=== PATIENT | female | born 1975 | race Caucasian/White ===

== ENCOUNTER 2024-06-11 04:20 | Emergency (ER) | payer BC ==
[~2024-06-11] VITALS: Ht 167.6 cm; Wt 60.5 kg
[2024-06-11] MEDS ORDERED: ALBUTEROL/IPRATROPIUM 3 ML NEB ONE (04:35)
[2024-06-11] MEDS ORDERED: PROCHLORPERAZINE EDISYLATE 10 MG/2 ML VIAL IV ONE (04:45)
[2024-06-11] MEDS ORDERED: LACTATED RINGER'S 1,000 ML IV ONE (04:45)
[2024-06-11] MEDS ORDERED: diphenhydrAMINE HCL 50 MG/ML VIAL IV ONE (04:45)
[2024-06-11] MEDS ORDERED: ALBUTEROL/IPRATROPIUM 3 ML NEB INH ONE (04:45)
[2024-06-11] MEDS ORDERED: KETOROLAC TROMETHAMINE 30 MG/ML VIAL IV ONE (04:45)
[2024-06-11 04:50] LABS: MCV 96.6 fl (81-99)
[2024-06-11 04:52] LABS: BASOPHILS 0.4 % (0-2); HEMATOCRIT 39.4 % (35.0-50.0); HEMOGLOBIN 13.4 g/dL (12.0-18.0); LYMPHOCYTES 24.7 % (24-44); MCHC 34.1 g/dl (30-36); MONOCYTES 8.5 % (0-12); NEUTROPHILS 66.4 % (39-80); PLATELET COUNT 152 K/uL (140-440); RBC 4.07 M/ul (4.3-5.7); RDW 12.7 (10.5-15.0)
[2024-06-11 05:03] LABS: ALBUMIN 3.5 g/dL (3.4-5.0); ALBUMIN/GLOBULIN RATIO 0.9 (1.1-2.4); ANION GAP 15.5 (7-21); BILIRUBIN, TOTAL 0.4 ng/dL (0.2-1.0); BUN/CREATININE RATIO 8.1 (6.0-28.6); CALCIUM 8.4 mg/dL (8.5-10.1); CREATININE, SERUM 1.11 mg/dL (0.55-1.02); POTASSIUM 3.5 mmol/L (3.5-5.1); PROTEIN, TOTAL 7.4 g/dL (6.4-8.2)
[2024-06-11 05:17] LABS: INFLUENZA B NAA NEGATIVE (NEGATIVE); RESPIRATORY SYNCYTIAL VIR NAA NEGATIVE (NEGATIVE)
[2024-06-11] MEDS ORDERED: HYDROmorphone HCL 1 MG/ML SYR IV ONE (05:45)
[2024-06-11 06:26] LABS: BILIRUBIN, URINE NEGATIVE (negative); BLOOD/HGB, URINE SMALL (Negative); KETONE, URINE >=80 (Negative); LEUK ESTERASE, URINE NEGATIVE (negative); NITRITE, URINE NEGATIVE (negative)
[2024-06-11 06:36] LABS: BACTERIA, URINE 1+ /hpf (negative); CASTS, URINE NONE SEEN \\lpf; COLLECTION TYPE, URINE CLEAN CATCH; CRYSTALS, URINE NONE SEEN (0-1+); EPITHELIAL CELLS, URINE SQUAMOUS 1+ /lpf (0-1+); REFLEX CULTURE, URINE No (No)
[2024-06-11] MEDS ORDERED: INHALER, ASSIST DEVICES 1 EACH SPACER MISC ONE (06:45)
[2024-06-11] MEDS ORDERED: HYDROCODONE BIT/ACETAMINOPHEN 5/325 MG 1 TAB HOME.PACK PO ONE (06:45)
[2024-06-11] MEDS ORDERED: ALBUTEROL SULFATE 8 GM HOME.PACK INH ONE (06:45)
[2024-06-11 07:21] VITALS: BP 92/67
[2024-06-12] MEDS ORDERED: ONDANSETRON ODT8 MG PO (18:50)
[2024-06-12] MEDS ORDERED: HYDROCODON-ACE1 EAC1 PO (18:50)
[2024-06-12] MEDS ORDERED: FLONASE ALLERG9.9 ML NAS (21:11)
== END 2024-06-11 07:18 | disposition home or self-care (01) ==
LOC: ED 04:20
PROVIDERS: Internal Medicine
DX: J10.1 Influenza due to other identified influenza virus with other respiratory manifestations (principal); G43.909 Migraine, unspecified, not intractable, without status migrainosus; Z88.0 Allergy status to penicillin; Z88.1 Allergy status to other antibiotic agents
CPT/HCPCS: 36415; 71045; 80053; 81001; 84703; 85025; 87502; 96374; 96375; 99284-25; A9270; J0780; J1171; J1200; J1885; J7121; U0002

== ENCOUNTER 2024-06-12 18:40 | Emergency (ER) | payer BC ==
[~2024-06-12] VITALS: Ht 167.6 cm; Wt 60.8 kg
--- OUTSIDE RECORDS SUMMARY | 2024-06-12 18:46 | XMS ---
PreManage Notification: ROHINI HINES [employer] Events No recent Security Events currently on file CRITERIA MET - [facility] - 2 Visits in 30 Days CARE PROVIDERS There are no care providers on record at this time. Raj has no Care Guidelines for this patient. Katarina VISIT COUNT (12 MO.) [facility] NOTE: Visits indicate total known visits. ED/[facility] VISIT TRACKING (12 MO.) 06/12/2024 18:40 [facility] COMPLAINT: - EAR PAIN 06/11/2024 04:21 [facility] TYPE: Emergency COMPLAINT: - FLU SYMPTOMS/MIGRAINE INPATIENT VISIT TRACKING (12 MO.) No inpatient visits to display in this time frame [email or web address]
[2024-06-12] MEDS ORDERED: ONDANSETRON ODT8 MG PO (18:50)
[2024-06-12] MEDS ORDERED: HYDROCODON-ACE1 EAC1 PO (18:50)
[2024-06-12] MEDS ORDERED: OXYMETAZOLINE HCL 30 ML BTL NAS ONE (19:15)
[2024-06-12] MEDS ORDERED: ondansetron HCL 4 MG/2 ML VIAL IV ONE (19:15)
[2024-06-12] MEDS ORDERED: LACTATED RINGER'S 1,000 ML IV ONE (19:15)
[2024-06-12] MEDS ORDERED: DEXAMETHASONE SOD PHOS 10 MG/ML VIAL IV ONE (19:15)
[2024-06-12] MEDS ORDERED: droPERidol 5 MG/2 ML VIAL IV ONE (20:15)
[2024-06-12] MEDS ORDERED: FLONASE ALLERG9.9 ML NAS (21:11)
[2024-06-12] MEDS ORDERED: ONDANSETRON 4 MG HOME.PACK SL ONE (21:15)
[2024-06-12 21:30] VITALS: BP 99/60
== END 2024-06-12 21:30 | disposition home or self-care (01) ==
LOC: ED 18:40
DX: H69.81 Other specified disorders of Eustachian tube, right ear (principal); J10.1 Influenza due to other identified influenza virus with other respiratory manifestations; G43.909 Migraine, unspecified, not intractable, without status migrainosus; Z88.0 Allergy status to penicillin; Z88.1 Allergy status to other antibiotic agents; Z79.899 Other long term (current) drug therapy
CPT/HCPCS: 96361; 96374; 96375; 99283-25; A9270; J1100; J1790; J2405; J7121